=== PATIENT | female | born 1975 | race Two or more races ===

== ENCOUNTER 2018-09-21 06:58 | Outpatient (CLI) | payer OTHER ==
[~2018-09-21 06:58] MED LIST: B COMPLEX-VITA1 EACH; NEURONTIN300 MG; TAMOXIFEN CITRA20 MG
== END 2018-09-21 08:58 | disposition home or self-care (01) ==
LOC: LAB 06:58
DX: I74.19 Embolism and thrombosis of other parts of aorta (principal); C50.111 Malignant neoplasm of central portion of right female breast

== ENCOUNTER 2018-09-21 07:37 | Outpatient (CLI) | payer OTHER | END 2018-09-21 12:25 | disposition home or self-care (01) | LOC: SONOGRAMA 07:37 | DX: I74.10 Embolism and thrombosis of unspecified parts of aorta (principal); C50.111 Malignant neoplasm of central portion of right female breast ==

== ENCOUNTER 2020-11-13 10:53 | Outpatient (CLI) | payer OTHER | END 2020-11-13 11:03 | disposition home or self-care (01) | LOC: SONOGRAMA 10:53 | PROVIDERS: ATTEND Internal Medicine Hematology & Oncology | DX: C50.111 Malignant neoplasm of central portion of right female breast (principal) ==

== ENCOUNTER 2022-02-24 14:49 | Outpatient (CLI) | payer OTHER | END 2022-02-24 15:05 | disposition home or self-care (01) | LOC: RAD 14:49 | PROVIDERS: ATTEND Internal Medicine Hematology & Oncology | DX: M99.01 Segmental and somatic dysfunction of cervical region (principal); M99.02 Segmental and somatic dysfunction of thoracic region; M99.03 Segmental and somatic dysfunction of lumbar region; M99.04 Segmental and somatic dysfunction of sacral region; M99.05 Segmental and somatic dysfunction of pelvic region ==

== ENCOUNTER 2022-02-28 16:35 | Emergency (ER) | payer OTHER ==
[~2022-02-28] VITALS: Ht 170.2 cm; Wt 70.3 kg
[2022-02-28] MEDS ORDERED: ATACAND HCT 321 EAC1 (16:51)
== END 2022-02-28 17:14 | disposition home or self-care (01) ==
LOC: ER 16:35
DX: M54.2 Cervicalgia (principal)

== ENCOUNTER 2023-03-29 08:22 | Outpatient (CLI) | payer OTHER ==
[~2023-03-29 08:22] MED LIST changes: +ATACAND HCT 321 EAC1
== END 2023-03-29 08:29 | disposition home or self-care (01) ==
LOC: SONOGRAMA 08:22
PROVIDERS: ATTEND Internal Medicine Hematology & Oncology
DX: C50.111 Malignant neoplasm of central portion of right female breast (principal)

== ENCOUNTER 2023-03-31 11:38 | Outpatient (CLI) | payer OTHER | END 2023-03-31 11:52 | disposition home or self-care (01) | LOC: MRI 11:38 | DX: R19.00 Intra-abdominal and pelvic swelling, mass and lump, unspecified site (principal) | CPT/HCPCS: 72196 ==